=== PATIENT | female | born 1980 | race Caucasian/White ===

== ENCOUNTER 2018-10-24 18:28 | Emergency (ER) | payer OTHER ==
[~2018-10-24] VITALS: Ht 167.6 cm; Wt 72.6 kg
[~2018-10-24 18:28] MED LIST: ALPRAZOLAM; ATIVAN1 MG PO
[2018-10-24 19:01] LABS: ABSOLUTE BASOPHILS 0.1 thou/uL (0.0-0.2); ABSOLUTE EOSINOPHILS 0.2 thou/uL (0.0-0.7); ABSOLUTE MONOCYTES 0.9 thou/uL (0.0-1.2); ABSOLUTE NEUTROPHILS 5.5 thou/uL (1.6-8.1); BASOPHILS 0.6 %; HEMATOCRIT 47.4 % (37.0-47.0); LYMPHOCYTES 23.1 %; MCH 32.2 pg (26.0-34.0); MCHC 33.8 g/dL (28.0-37.0); MCV 95.4 fL (80.0-100.0); MONOCYTES 9.9 %; MPV 8.7 fl. (7.2-11.1); NUCLEATED RBCS 0 /100WBC; PLATELET COUNT* 221 thou/uL (150-400); POLYS 64.4 %; RBC 4.97 mil/uL (4.20-5.00); RDW-CV 12.9 % (10.5-14.5); WBC 8.6 thou/uL (4.0-11.0)
[2018-10-24 19:08] LABS: CALCIUM 9.1 mg/dL (8.5-10.1); CREATININE 0.7 mg/dL (0.6-1.3)
[2018-10-24 19:13] LABS: TOTAL BILIRUBIN 0.4 mg/dL (<0.1-1.0); TOTAL PROTEIN 7.7 g/dL (6.4-8.2)
[2018-10-24 20:58] VITALS: BP 115/80
== END 2018-10-24 20:59 | disposition home or self-care (01) ==
LOC: M.ERS 18:28
PROVIDERS: Nurse Practitioner Family
DX: R22.0 Localized swelling, mass and lump, head (principal)

== ENCOUNTER 2018-10-29 17:06 | Emergency (ER) | payer OTHER ==
[~2018-10-29] VITALS: Ht 167.6 cm; Wt 68.0 kg
[2018-10-29] MEDS ORDERED: NORCO 5-325 TA1 EACH PO (17:50)
[2018-10-29] MEDS ORDERED: IBUPROFEN 600600 M1 PO (17:50)
[2018-10-29 18:33] VITALS: BP 130/71
== END 2018-10-29 18:34 | disposition home or self-care (01) ==
LOC: M.ERS 17:06
DX: S92.354A Nondisplaced fracture of fifth metatarsal bone, right foot, initial encounter for closed fracture (principal); X58.XXXA Exposure to other specified factors, initial encounter; Y93.89 Activity, other specified; Y92.89 Other specified places as the place of occurrence of the external cause; Y99.8 Other external cause status

== ENCOUNTER 2018-11-08 20:09 | Emergency (ER) | payer OTHER ==
[~2018-11-08] VITALS: Ht 167.6 cm; Wt 83.5 kg
[~2018-11-08 20:09] MED LIST changes: +IBUPROFEN 600600 M1 PO; +NORCO 5-325 TA1 EACH PO
[2018-11-08 21:11] VITALS: BP 126/88
== END 2018-11-08 21:12 | disposition home or self-care (01) ==
LOC: M.ERS 20:09
DX: S92.351D Displaced fracture of fifth metatarsal bone, right foot, subsequent encounter for fracture with routine healing (principal); X58.XXXD Exposure to other specified factors, subsequent encounter

== ENCOUNTER 2018-11-10 19:21 | Emergency (ER) | payer OTHER ==
[~2018-11-10] VITALS: Ht 167.6 cm; Wt 72.6 kg
[2018-11-10 20:05] VITALS: BP 117/87
== END 2018-11-10 20:05 | disposition home or self-care (01) ==
LOC: M.ERS 19:21
DX: Z46.89 Encounter for fitting and adjustment of other specified devices (principal)